=== PATIENT | female | born 1975 | race Two or more races ===

== ENCOUNTER 2024-04-21 08:05 | Emergency (ER) | payer OTHER ==
[~2024-04-21] VITALS: Ht 144.8 cm; Wt 44.0 kg
[2024-04-21] MEDS: METRONIDAZOLE 500 MG/NS 100ML 100 ML IV ONE (08:30)
[2024-04-21 08:55] LABS: BASOPHILS # (AUTO) 0.1 K/UL (0.0-0.2); BASOPHILS % (AUTO) 1.1 % (0.0-2.0); EOSINOPHILS % (AUTO) 0.1 % (0.0-7.0); HEMATOCRIT 36.1 % (31.2-41.9); HEMOGLOBIN 12.3 g/dL (10.9-14.3); LYMPHOCYTES # (AUTO) 0.9 K/uL (0.8-4.8); LYMPHOCYTES % (AUTO) 9.3 % (20.5-51.5); MEAN CORPUSCULAR HEMOGLOBIN 31.8 uug (24.7-32.8); MEAN CORPUSCULAR HGB CONC 34 g/dL (32.3-35.6); MEAN CORPUSCULAR VOLUME 93.7 fL (75.5-95.3); MONOCYTES # (AUTO) 0.4 K/uL (0.1-1.30); MONOCYTES % (AUTO) 3.8 % (0.0-11.0); NEUTROPHILS # (AUTO) 8.2 K/uL (1.8-8.9); NEUTROPHILS % (AUTO) 85.7 % (38.5-71.5); PLATELET COUNT (AUTO) 218 K/uL (179-408); RED BLOOD CELL COUNT(AUTO) 3.85 MIL/uL (3.63-4.92); RED CELL DISTRIBUTION WIDTH 16.8 % (12.3-17.7); WHITE BLOOD COUNT (AUTO) 9.6 K/uL (3.8-11.8)
[2024-04-21 09:02] LABS: DIFFERENTIAL COMMENT 1
[2024-04-21 09:07] LABS: CALCIUM 10.2 mg/dL (8.5-10.1); CARBON DIOXIDE 20 mmol/L (21-32); CHLORIDE 97 mmol/L (98-107); CREATININE 0.6 mg/dL (0.6-1.3); GLUCOSE 106 mg/dL (74-106); POTASSIUM 3.3 mmol/L (3.5-5.1); SODIUM SERUM 134 mmol/L (136-145); UREA NITROGEN, BLOOD 12 mg/dL (7-18)
[2024-04-21 09:08] LABS: AMMONIA < 10 umol/L (11-32); ETHANOL < 3 MG/DL (0-10)
[2024-04-21] MEDS ORDERED: METRONIDAZOLE 500 MG/NS 100ML 100 ML IV ONE (09:08)
[2024-04-21] MEDS ORDERED: CEFTRIAXONE 1 G VIAL ONE (09:08)
[2024-04-21 09:15] LABS: ACETAMINOPHEN < 10.0 ug/mL (10-30)
[2024-04-21 09:17] LABS: LACTIC ACID 2.1 mmol/L (0.4-2.0)
[2024-04-21 09:24] LABS: ALANINE AMINOTRANSFERASE 30 U/L (14-59); ALBUMIN 4.2 g/dL (3.4-5.0); ALKALINE PHOSPHATASE 131 U/L (50-136); ASPARTATE AMINOTRANSFERASE 18 U/L (15-37); BILIRUBIN,DIRECT 0.3 mg/dL (0.0-0.2); BILIRUBIN,TOTAL 2.3 mg/dL (0.2-1.0); NT-PRO BNP 61 pg/mL (0-125); TOTAL PROTEIN, SERUM 8.6 g/dL (6.4-8.2)
[2024-04-21] MEDS: IV NORMAL SALINE 1000 ML BAG IV ONE ×2 (09:29→10:00)
[2024-04-21] MEDS: CEFTRIAXONE 2 G in IV DEXTROSE 5% 100 ML IV ONE (09:29)
[2024-04-21 10:24] LABS: BAND % (MANUAL) 8 % (0-10); LYMPHOCYTES % (MANUAL) 14 % (20-40); MONOCYTES % (MANUAL) 2 % (2-10); MYELOCYTES % 1 % (0-0); NEUTROPHILS % (MANUAL) 75 % (42-75); PLATELET ESTIMATE ADEQUATE
[2024-04-21 10:25] LABS: ANISOCYTOSIS 1+
[2024-04-21 14:31] VITALS: BP 113/73; TEMP 98; O2SAT 97
== END 2024-04-21 14:32 | disposition home or self-care (01) ==
LOC: ER 08:05
DX: R55 Syncope and collapse (principal); C56.9 Malignant neoplasm of unspecified ovary; E78.5 Hyperlipidemia, unspecified; E86.0 Dehydration; K21.00 Gastro-esophageal reflux disease with esophagitis, without bleeding; K58.9 Irritable bowel syndrome, unspecified; Z87.11 Personal history of peptic ulcer disease; Z87.19 Personal history of other diseases of the digestive system; Z90.49 Acquired absence of other specified parts of digestive tract
CPT/HCPCS: 80076; 80048; 82140; 83880; 85007; 85025; 84145; 85730; 87040 ×2; 84484; 36415; 71045; 93005; 99291; 96365; 96366; 96368; 83605 ×2; 80299; 80320; J0696 ×2; J3490; J7040; 70030-TC; A4606; A4663; G0480